=== PATIENT | male | born 1955 | race Caucasian/White ===

== ENCOUNTER 2024-02-07 06:36 | Day surgery (SDC) | payer MEDICARE ==
[~2024-02-07] VITALS: Ht 177.8 cm; Wt 115.4 kg
[2024-02-07] VITALS (14 sets, daily range): BP systolic 104–132; BP diastolic 66–85; PULSE 64–89; RESP 11–18; TEMP 97; O2SAT 95–98
[2024-02-07 07:37] LABS: INR 1.1 INR
[2024-02-07 07:41] LABS: ALBUMIN 3.2 G/DL (3.4-5.0); ANION GAP 12 (8-16); BLOOD UREA NITROGEN 22 MG/DL (7-18); BUN/CREATININE RATIO 22.4 (10.0-20.0); CALCIUM 9.3 MG/DL (8.5-10.1); CHLORIDE 103 MMOL/L (99-107); CREATININE 0.98 MG/DL (0.60-1.10); GLUCOSE 106 MG/DL (70-104); MAGNESIUM 2.5 MG/DL (1.5-2.4); POTASSIUM 4.4 MMOL/L (3.5-5.1); SODIUM 136 MMOL/L (135-145); TOTAL CARBON DIOXIDE 21.3 MMOL/L (24-32); eCRCL 74 ML/MIN; eGFR 76 ML/MIN
[2024-02-07] MEDS ORDERED: DIGO-20 PO (07:55)
[2024-02-07] MEDS ORDERED: LACT1CAP65 PO (07:55)
[2024-02-07] MEDS ORDERED: FURO-150 PO (07:55)
[2024-02-07] MEDS ORDERED: CEPH500C2 PO (07:55)
[2024-02-07] MEDS ORDERED: CHOL20004 PO (07:55)
[2024-02-07] MEDS ORDERED: SPIR25TA5 PO (07:55)
[2024-02-07] MEDS ORDERED: MAGN400T39 PO (07:55)
[2024-02-07] MEDS ORDERED: EMPA10TA PO (07:55)
[2024-02-07] MEDS ORDERED: SACU1TAB PO (07:55)
[2024-02-07] MEDS ORDERED: METO200T3 PO (07:55)
[2024-02-07] MEDS ORDERED: AMIO200T27 PO (07:55)
[2024-02-07] MEDS ORDERED: APIX5TAB3 PO (07:55)
[2024-02-07] MEDS: MIDAZolam 1mg/ml 10ml vial IV ONE (09:22)
[2024-02-07] MEDS: normal saline 1000ml 1,000 ML IV SCH (09:22)
[2024-02-07] MEDS: fentaNYL/PF 50MCG/1 ML 2ML syringe IV ONE (09:22)
== END 2024-02-07 10:45 | disposition home or self-care (01) ==
LOC: SSTAY O 06:36
PROVIDERS: ATTEND Internal Medicine Cardiovascular Disease
DX: I48.0 Paroxysmal atrial fibrillation (principal); I48.3 Typical atrial flutter; I25.2 Old myocardial infarction; I10 Essential (primary) hypertension; E78.00 Pure hypercholesterolemia, unspecified; I42.9 Cardiomyopathy, unspecified; M19.90 Unspecified osteoarthritis, unspecified site; Z79.899 Other long term (current) drug therapy; Z98.890 Other specified postprocedural states; Z86.718 Personal history of other venous thrombosis and embolism; Z80.0 Family history of malignant neoplasm of digestive organs; Z82.49 Family history of ischemic heart disease and other diseases of the circulatory system
CPT/HCPCS: 80048; 83735; 85610; 92960; 93005; J2250; J3010; J7030; A4620